=== PATIENT | male | born 1965 | race Caucasian/White ===

== ENCOUNTER → 2016-07-09 | Outpatient (CLI) | payer OTHER ==
[2016-07-09 11:04] LABS: CHLORIDE,CL 101 mmol/L (98-110); SODIUM,NA 137 mmol/L (136-146)
== END ==
LOC: MW.CHFP 10:15
PROVIDERS: ATTEND Family Medicine
DX: I10 Essential (primary) hypertension (principal); E11.69 Type 2 diabetes mellitus with other specified complication; E78.5 Hyperlipidemia, unspecified
CPT/HCPCS: 36415; 80053; 80061; 83036; 84443; 85027

== ENCOUNTER 2016-12-06 22:16 | Observation (INO) | payer OTHER ==
[2016-12-06] MEDS ORDERED: Aspirin 81 MG Tab.Chew PO ONE (22:21)
[2016-12-06] MEDS ORDERED: Sodium Chloride 0.9% 1,000 ML IV ONE (22:21)
--- NOTE | 2016-12-06 22:23 | EDM.PDOC ---
ED HPI GENERAL MEDICAL PROBLEM - General Stated Complaint: TIGHT CHEST PAIN,NECK,EAR,SHOULDER Time Seen by Provider: 12/06/16 22:22 Source of Information: Reports: Patient - History of Present Illness INITIAL COMMENTS - FREE TEXT/NARRATIVE: HISTORY AND PHYSICAL: History of present illness: []Patient has chest pain he rates 4 out of 10 been off-and-on for the last month worsen this evening he had an episode sustained for an hour of chest tightness this was relieved with 2 nitroglycerin here in the emergency room he had taken 325 mg of aspirin at home approximately an hour prior to arrival currently no fever nausea vomiting chills sweats pain is 0 out of 10 originally there was some radiation to the neck possibly he states his ears felt full not associated with shortness of breath or diaphoresis No fever nausea vomiting chills sweats Review of systems: As per history of present illness and below otherwise all systems reviewed and negative. Past medical history: As per history of present illness and as reviewed below otherwise noncontributory. Surgical history: As per history of present illness and as reviewed below otherwise noncontributory. Social history: No reported history of drug or alcohol abuse. Family history: As per history of present illness and as reviewed below otherwise noncontributory. Physical exam: HEENT: Atraumatic, normocephalic, pupils reactive, negative for conjunctival pallor or scleral icterus, mucous membranes moist, throat clear, neck supple, nontender, trachea midline. Lungs: Clear to auscultation, breath sounds equal bilaterally, chest nontender. Heart: S1S2, regular, negative for clicks, rubs, or JVD. Abdomen: Soft, nondistended, nontender. Negative for masses or hepatosplenomegaly. Negative for costovertebral tenderness. Pelvis: Stable nontender. Genitourinary: Deferred. Rectal: Deferred. Extremities: Atraumatic, negative for cords or calf pain. Neurovascular unremarkable. Neuro: Awake, alert, oriented. Cranial nerves II through XII unremarkable. Cerebellum unremarkable. Motor and sensory unremarkable throughout. Exam nonfocal. Diagnostics: []Lab as below EKG Chest 1 view Therapeutics: []Saline bolus Aspirin 324 mg chewable Nitroglycerin 0.4 mg sublingual 2 Lopressor 5 mg IV Lovenox 117 mg subcutaneous Impression: Acute coronary syndrome Definitive disposition and diagnosis as appropriate pending reevaluation and review of above. chest pain Pain Score (Numeric/FACES): 7 - Related Data Allergies Allergy/AdvReac Type Severity Reaction Status Date / Time No Known Allergies Allergy Verified 12/06/16 22:26 Home Meds: Home Meds Canagliflozin [Invokana] 300 mg PO DAILY 12/06/16 [History] Esomeprazole [NexIUM] 40 mg PO DAILY 12/06/16 [History] Lisinopril 1 tab PO DAILY 12/06/16 [History] atorvaSTATin [Lipitor] 10 mg PO DAILY 12/06/16 [History] metFORMIN [Glucophage] 1,000 mg PO BIDMEALS 12/06/16 [History] Social & Family History - Tobacco Use Smoking Status *Q: Current Every Day Smoker Years of Tobacco use: 34 - Alcohol Use Days Per Week of Alcohol Use: 0 - Recreational Drug Use Recreational Drug Use: No ED ROS GENERAL - Review of Systems Review Of Systems: ROS reveals no pertinent complaints other than HPI. ED EXAM, GENERAL - Physical Exam Exam: See Below Course - Vital Signs Last Recorded V/S: Last Vital Signs Temp 36.6 C 12/07/16 04:36 Pulse 84 12/07/16 04:36 Resp 16 12/07/16 04:36 BP 106/61 12/07/16 04:36 Pulse Ox 95 12/07/16 04:36 - Orders/Labs/Meds Labs: Laboratory Tests 12/06/16 12/06/16 12/06/16 Range/Units 22:23 22:23 22:23 WBC 19.20 H (4.0-11.0) K/uL RBC 4.62 (4.50-5.90) M/uL Hgb 15.7 (13.0-17.0) g/dL Hct 44.7 (38.0-50.0) % MCV 96.8 (80.0-98.0) fL MCH 34.0 H (27.0-32.0) pg MCHC 35.1 (31.0-37.0) g/dL RDW Std Deviation 48.6 (28.0-62.0) fl RDW Coeff of Sharon 14 (11.0-15.0) % Plt Count 297 (150-400) K/uL MPV 9.00 (7.40-12.00) fL Neut % (Auto) 66.6 (48.0-80.0) % Lymph % (Auto) 23.3 (16.0-40.0) % [place] % (Auto) 7.8 (0.0-15.0) % Eos % (Auto) 1.9 (0.0-7.0) % Baso % (Auto) 0.4 (0.0-1.5) % Neut # (Auto) 12.8 H (1.4-5.7) K/uL Lymph # (Auto) 4.5 H (0.6-2.4) K/uL [place] # (Auto) 1.5 H (0.0-0.8) K/uL Eos # (Auto) 0.4 (0.0-0.7) K/uL Baso # (Auto) 0.1 (0.0-0.1) K/uL Nucleated RBC % 0.0 /100WBC Nucleated RBCs # 0 K/uL Sodium 137 (136-146) mmol/L Potassium 4.4 (3.5-5.1) mmol/L Chloride 100 (98-110) mmol/L Carbon Dioxide 25 (21-31) mmol/L BUN 16 (6.0-23.0) mg/dL Creatinine 1.4 (0.6-1.5) mg/dL Est Cr Clr Drug Dosing 71.34 mL/min Estimated GFR (MDRD) 53.6 ml/min Glucose 146 H (60-110) mg/dL Calcium 10.5 (8.8-10.8) mg/dL Total Bilirubin 0.4 (0.1-1.5) mg/dL AST 15 (5-40) IU/L ALT 18 (8-54) IU/L Alkaline Phosphatase 101 (40-150) Creatine Kinase 105 (9-236) IU/L CK-MB (CK-2) 1.4 (0-6.6) ng/ml Troponin I < 0.10 (0.0-0.29) NG/ML Total Protein 8.3 H (6.0-8.0) g/dL Albumin 4.6 (3.5-5.0) g/dL Globulin 3.7 H (2.0-3.5) g/dL Albumin/Globulin Ratio 1.2 L (1.3-2.8) Amylase 61 (10-90) U/L Lipase 24 (7-80) U/L Urine Color Urine Appearance Urine pH (5.0-8.0) Ur Specific [place] (1.001-1.035) Urine Protein (NEGATIVE) mg/dL Urine Glucose (UA) (NEGATIVE) mg/dL Urine Ketones (NEGATIVE) mg/dL Urine Occult Blood (NEGATIVE) Urine Nitrite (NEGATIVE) Urine Bilirubin (NEGATIVE) Urine Urobilinogen (<2.0) EU/dL Ur Leukocyte Esterase (NEGATIVE) Urine RBC (0-2/HPF) Urine WBC (0-5/HPF) Ur Epithelial Cells (NONE-FEW) Urine Bacteria (NEGATIVE) 12/06/16 Range/Units 22:53 WBC (4.0-11.0) K/uL RBC (4.50-5.90) M/uL Hgb (13.0-17.0) g/dL Hct (38.0-50.0) % MCV (80.0-98.0) fL MCH (27.0-32.0) pg MCHC (31.0-37.0) g/dL RDW Std Deviation (28.0-62.0) fl RDW Coeff of Sharon (11.0-15.0) % Plt Count (150-400) K/uL MPV (7.40-12.00) fL Neut % (Auto) (48.0-80.0) % Lymph % (Auto) (16.0-40.0) % [place] % (Auto) (0.0-15.0) % Eos % (Auto) (0.0-7.0) % Baso % (Auto) (0.0-1.5) % Neut # (Auto) (1.4-5.7) K/uL Lymph # (Auto) (0.6-2.4) K/uL [place] # (Auto) (0.0-0.8) K/uL Eos # (Auto) (0.0-0.7) K/uL Baso # (Auto) (0.0-0.1) K/uL Nucleated RBC % /100WBC Nucleated RBCs # K/uL Sodium (136-146) mmol/L Potassium (3.5-5.1) mmol/L Chloride (98-110) mmol/L Carbon Dioxide (21-31) mmol/L BUN (6.0-23.0) mg/dL Creatinine (0.6-1.5) mg/dL Est Cr Clr Drug Dosing mL/min Estimated GFR (MDRD) ml/min Glucose (60-110) mg/dL Calcium (8.8-10.8) mg/dL Total Bilirubin (0.1-1.5) mg/dL AST (5-40) IU/L ALT (8-54) IU/L Alkaline Phosphatase (40-150) Creatine Kinase (9-236) IU/L CK-MB (CK-2) (0-6.6) ng/ml Troponin I (0.0-0.29) NG/ML Total Protein (6.0-8.0) g/dL Albumin (3.5-5.0) g/dL Globulin (2.0-3.5) g/dL Albumin/Globulin Ratio (1.3-2.8) Amylase (10-90) U/L Lipase (7-80) U/L Urine Color YELLOW Urine Appearance CLEAR Urine pH 5.5 (5.0-8.0) Ur Specific [place] 1.010 (1.001-1.035) Urine Protein NEGATIVE (NEGATIVE) mg/dL Urine Glucose (UA) >=1000 (NEGATIVE) mg/dL Urine Ketones NEGATIVE (NEGATIVE) mg/dL Urine Occult Blood TRACE-INTACT (NEGATIVE) Urine Nitrite NEGATIVE (NEGATIVE) Urine Bilirubin NEGATIVE (NEGATIVE) Urine Urobilinogen 0.2 (<2.0) EU/dL Ur Leukocyte Esterase NEGATIVE (NEGATIVE) Urine RBC 0-3 (0-2/HPF) Urine WBC 0-2 (0-5/HPF) Ur Epithelial Cells RARE (NONE-FEW) Urine Bacteria RARE (NEGATIVE) Meds: Medications Discontinued Medications Generic Name Dose Route Start Last Admin Trade Name Freq PRN Reason Stop Dose Admin Aspirin 324 mg 12/06/16 22:21 12/06/16 22:35 Aspirin PO 12/06/16 22:22 Not Given ONETIME ONE Benzocaine/Menthol 1 lozenge 12/07/16 00:24 Cepacol Sore Throat MUCMEM Q2H PRN Sore Throat Enoxaparin Sodium 117 mg 12/06/16 23:14 12/06/16 23:30 Lovenox SUBCUT 12/06/16 23:15 117 mg ONETIME ONE Administration Sodium Chloride 1,000 mls @ 999 mls/hr 12/06/16 22:21 12/06/16 22:34 Normal Saline IV 12/06/16 23:21 999 mls/hr STAT ONE Administration Insulin Aspart 0 unit 12/07/16 00:30 12/07/16 01:44 Novolog SUBCUT Not Given TIDAC [facility] Protocol Metoprolol Tartrate 5 mg 12/06/16 22:30 12/06/16 23:30 Lopressor IVPUSH 12/06/16 22:31 5 mg ONETIME ONE Administration Nitroglycerin 0.4 mg 12/06/16 22:29 12/06/16 22:50 Nitrostat SL 0.4 mg Q5M PRN Administration Chest Pain Nitroglycerin Confirm 12/06/16 22:39 12/06/16 22:43 Nitrostat Administered 12/06/16 22:40 Not Given Dose 1.2 mg .ROUTE .STK-MED ONE Departure - Departure Time of Disposition: 19:08 Disposition: Admitted As Inpatient 67 Condition: Good Clinical Impression: Acute coronary syndrome - Discharge Information
[2016-12-06] MEDS ORDERED: Metoprolol Tartrate 5 MG/5 ML SDV IVPUSH ONE (22:30)
[2016-12-06] MEDS ORDERED: Nitroglycerin 0.4 MG Tab.SL ONE (22:39)
[2016-12-06] MEDS: Nitroglycerin 0.4 MG Tab.SL SL PRN ×2 (22:43→22:50)
[2016-12-06] MEDS ORDERED: Enoxaparin 150 MG/1 ML Syringe SUBCUT ONE (23:14)
[2016-12-07] MEDS ORDERED: Benzocaine/Cetylpyridinium/Menthol Lozenge MUCMEM PRN (00:24)
[2016-12-07] MEDS ORDERED: Insulin Aspart 100 Units/ML 3 ML Pen SUBCUT SCH (00:30)
[2016-12-07 05:43] VITALS: BP 106/61
--- NOTE | 2016-12-07 05:45 | PCM.HP ---
H&P History of Present Illness - History of Present Illness Initial Comments - Free Text/Narative: 51 yo male smoker with pmh of HTN and DM who presents with history of one hour of chest pain. He describes the pain as substernal chest pressure that radiates to the neck with associated symptoms of shortness of breath. He had been having chest pain that had been less severe for past month and was scheduled for stress testing this Friday. He took an aspirin at home and came to the ED. IN the ED he had ECG which showed t-wave inversion. Initial troponin was negative. He received SL nitro x2 with resolution of chest pain. He received Aspirin 325mg and lovenox 117mg in the ED. His second troponin is elevated at 0.62 but has remained chest pain free. chest pain Pain Score (Numeric/FACES): 0 - Related Data Allergies/Adverse Reactions: Allergies Allergy/AdvReac Type Severity Reaction Status Date / Time No Known Allergies Allergy Verified 12/06/16 22:26 Home Medications: Home Meds Canagliflozin [Invokana] 300 mg PO DAILY 12/06/16 [History] Esomeprazole [NexIUM] 40 mg PO DAILY 12/06/16 [History] Lisinopril 1 tab PO DAILY 12/06/16 [History] atorvaSTATin [Lipitor] 10 mg PO DAILY 12/06/16 [History] metFORMIN [Glucophage] 1,000 mg PO BIDMEALS 12/06/16 [History] Past Medical History HEENT History: Reports: Cataract Other HEENT History: cataracts done this month, left eye two days prior to this admission Cardiovascular History: Reports: High Cholesterol, Hypertension Respiratory History: Reports: None Gastrointestinal History: Reports: None Genitourinary History: Reports: Other (See Below) Other Genitourinary History: Testicular Ca Musculoskeletal History: Reports: None Neurological History: Reports: None Psychiatric History: Reports: None Endocrine/Metabolic History: Reports: Diabetes, Type II Hematologic History: Reports: None Immunologic History: Reports: None Oncologic (Cancer) History: Reports: Other (See Below) Other Oncologic History: Testicular Ca Dermatologic History: Reports: None - Infectious Disease History Infectious Disease History: Reports: Chicken Pox, Measles, Mumps - Past Surgical History HEENT Surgical History: Reports: Cataract Surgery Respiratory Surgical History: Reports: Other (See Below) Other Respiratory Surgeries/Procedures: left lobectomy Male Surgical History: Reports: Other (See Below) Other Male Surgeries/Procedures: left testicular surgery Social & Family History - Family History Family Medical History: Noncontributory - Tobacco Use Smoking Status *Q: Heavy Tobacco Smoker Years of Tobacco use: 37 Packs/Tins Daily: 2 Second Hand Smoke Exposure: Yes - Caffeine Use Caffeine Use: Reports: Soda, Other Other Caffeine Use: DT MT DEW - Alcohol Use Days Per Week of Alcohol Use: 0 - Recreational Drug Use Recreational Drug Use: Yes Drug Use in Last 12 Months: Yes Recreational Drug Type: Reports: Dextromethorphan (Cough Syrup) Other Recreational Drug Type: uses two swigs every night to go to sleep H&P Review of Systems - Review of Systems: Review Of Systems: ROS reveals no pertinent complaints other than HPI. Exam - Exam Exam: See Below - Vital Signs Vital Signs: Last Vital Signs Temp 36.6 C 12/07/16 04:36 Pulse 84 12/07/16 04:36 Resp 16 12/07/16 04:36 BP 106/61 12/07/16 04:36 Pulse Ox 95 12/07/16 04:36 Weight: 117.5 kg - Exam General: Alert, Oriented HEENT: Mucosa Moist & [place], Posterior Pharynx Clear Lungs: Clear to Auscultation, Normal Respiratory Effort Cardiovascular: Regular Rate, Regular Rhythm GI/Abdominal Exam: Normal Bowel Sounds, Soft, Non-Tender, No Distention, Pelvis Stable Extremities: Normal Inspection, Non-Tender, No Pedal Edema Skin: Warm, Dry, Intact Neurological: No: Focal Deficit - Patient Data Lab Results Last 24 hrs: Laboratory Results - last 24 hr 12/07/16 12/07/16 12/07/16 Range/Units 04:12 04:12 04:12 WBC 13.73 H (4.0-11.0) K/uL RBC 4.11 L (4.50-5.90) M/uL Hgb 13.6 (13.0-17.0) g/dL Hct 40.4 (38.0-50.0) % MCV 98.3 H (80.0-98.0) fL MCH 33.1 H (27.0-32.0) pg MCHC 33.7 (31.0-37.0) g/dL RDW Std Deviation 49.8 (28.0-62.0) fl RDW Coeff of Sharon 14 (11.0-15.0) % Plt Count 261 (150-400) K/uL MPV 9.00 (7.40-12.00) fL Neut % (Auto) 57.8 (48.0-80.0) % Lymph % (Auto) 31.5 (16.0-40.0) % [place] % (Auto) 7.3 (0.0-15.0) % Eos % (Auto) 2.7 (0.0-7.0) % Baso % (Auto) 0.7 (0.0-1.5) % Neut # (Auto) 8.0 H (1.4-5.7) K/uL Lymph # (Auto) 4.3 H (0.6-2.4) K/uL [place] # (Auto) 1.0 H (0.0-0.8) K/uL Eos # (Auto) 0.4 (0.0-0.7) K/uL Baso # (Auto) 0.1 (0.0-0.1) K/uL Nucleated RBC % 0.0 /100WBC Nucleated RBCs # 0 K/uL Sodium 138 (136-146) mmol/L Potassium 4.7 (3.5-5.1) mmol/L Chloride 105 (98-110) mmol/L Carbon Dioxide 23 (21-31) mmol/L BUN 22 (6.0-23.0) mg/dL Creatinine 1.3 (0.6-1.5) mg/dL Est Cr Clr Drug Dosing 76.83 mL/min Estimated GFR (MDRD) 58.4 ml/min Glucose 138 H (60-110) mg/dL Calcium 10.3 (8.8-10.8) mg/dL Troponin I 0.62 H* (0.0-0.29) NG/ML Result Diagrams: 12/07/16 04:12 12/07/16 04:12 *Q Meaningful Use (ADM) - VTE *Q VTE Criteria *Q: - Stroke *Q Stroke Criteria *Q: - AMI *Q AMI Criteria *Q: Problem List Initiated/Reviewed/Updated: Yes Orders Last 24hrs: Active Orders 24 hr Category Date Time Status Blood Glucose Check, Bedside [RC] TIDA Care 12/08/16 07:30 Active EKG 12 Lead [EKG Documentation Completion] [RC] STAT Care 12/07/16 04:36 Active Telemetry Monitoring [Cardiac Monitoring] [RC] . Care 12/06/16 23:43 Active DIRECTED [employer] Diet [DIET] Diet 12/07/16 Breakfast Active TROPONIN I [CHEM] Q6H Lab 12/07/16 10:23 Ordered Benzocaine/Cetylpyrd/Menthol [Cepacol Sore Throat] Med 12/07/16 00:24 Active 1 lozenge MUCMEM Q2H PRN Insulin Aspart [NovoLOG] Med 12/07/16 00:30 Active See Protocol SUBCUT TIDAC Medication Orders Benzocaine/Menthol (Cepacol Sore Throat) 1 lozenge MUCMEM Q2H PRN PRN Reason: Sore Throat Insulin Aspart (Novolog) 0 unit SUBCUT TIDAC DAVIDSON PRN Reason: Protocol Last Admin: 12/07/16 01:44 Dose: Not Given Nitroglycerin (Nitrostat) 0.4 mg SL Q5M PRN PRN Reason: Chest Pain Last Admin: 12/06/16 22:50 Dose: 0.4 mg Admin: 12/06/16 22:43 Dose: 0.4 mg Assessment/Plan Comment:: 51 yo male with likely NSTEMI. Patient has received ASA and lovenox. He is chest pain free. [facility] is full. I have called [facility] and Dr. De La Garza has accepted the patient for transfer
--- NOTE | 2016-12-09 13:28 | CR ---
EXAM DATE: 12/06/16 PATIENT'S AGE: 51 Patient: DEISI PEREZ Facility: [place], [place] Site . Site : 1965 Study: XRay Chest [id number]/29/2017 10:39:13 PM Ordering Physician: Carroll Smith Final Report: INDICATION: CHEST PAIN TECHNIQUE: Chest 1 view. COMPARISON: 11/18/16 FINDINGS: Cardiovascular and mediastinum: Heart size and vasculature are normal in caliber and appearance. Mediastinum is within normal limits. Lungs and pleural space: Lungs are clear. No sign of infiltrate or mass. No sign of pleural effusion. No pneumothorax. Bones and soft tissues: No significant findings. IMPRESSION: Unremarkable chest. Dictated by: Victor Manuel Bagley MD @ 12/06/2016 23:26:50 (Electronic Signature) Report Signed by Proxy. [facility]
== END 2016-12-07 07:00 ==
LOC: MW.ED 22:16 → MW.MS 23:32 → UNDODISOB 12-07 07:00
PROVIDERS: ADMIT Internal Medicine; ATTEND Internal Medicine
DX: R07.2 Precordial pain (principal); I10 Essential (primary) hypertension; E78.00 Pure hypercholesterolemia, unspecified; E11.9 Type 2 diabetes mellitus without complications; F17.210 Nicotine dependence, cigarettes, uncomplicated; Z85.47 Personal history of malignant neoplasm of testis; Z79.84 Long term (current) use of oral hypoglycemic drugs; Z79.899 Other long term (current) drug therapy; Z98.49 Cataract extraction status, unspecified eye; Z90.2 Acquired absence of lung [part of]; Z98.890 Other specified postprocedural states
CPT/HCPCS: 36415; 71010; 80048; 80053; 81001; 82150; 82550; 82553; 83690; 84484; 85025; 93005; 96361; 96374; 99285; A9270; G0378; J1650; J7040; 99283

== ENCOUNTER 2017-07-28 22:17 | Emergency (ER) | payer OTHER ==
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
[2017-07-28 23:47] VITALS: BP 128/76
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
== END 2017-07-28 23:45 | disposition home or self-care (01) ==
LOC: MW.ED 22:17
DX: S60.211A Contusion of right wrist, initial encounter (principal); S89.92XA Unspecified injury of left lower leg, initial encounter; I10 Essential (primary) hypertension; E11.9 Type 2 diabetes mellitus without complications; E78.00 Pure hypercholesterolemia, unspecified; Z79.82 Long term (current) use of aspirin; Z79.899 Other long term (current) drug therapy; V89.2XXA Person injured in unspecified motor-vehicle accident, traffic, initial encounter
CPT/HCPCS: 73110-26-RT; 73110-RT; 73590-26-LT; 73590-LT; 99284

== ENCOUNTER 2019-11-03 06:41 | Day surgery (SDC) | payer BC, OTHER ==
[~2019-11-03 06:41] MED LIST: Lactated Ringers 1,000 ML IV SCH
[2019-11-03] MEDS ORDERED: Lidocaine 2% 5 ML SDV ONE (07:08)
[2019-11-03] MEDS ORDERED: fentaNYL 100 MCG/2 ML SDV ONE (07:09)
[2019-11-03] MEDS ORDERED: Propofol 200 MG/20 ML SDV ONE (07:09)
--- NOTE | 2019-11-03 07:43 | PCM.PREANE ---
Preanesthetic Assessment - Anesthesia/Transfusion/Family Hx Anesthesia History: Prior Anesthesia Without Reaction Family History of Anesthesia Reaction: No Transfusion History: No Prior Transfusion(s) - Review of Systems General: No Symptoms Pulmonary: No Symptoms Cardiovascular: No Symptoms Gastrointestinal: No Symptoms Neurological: No Symptoms Other: Reports: None - Physical Assessment NPO Status Date: 11/02/19 Vital Signs: Last Vital Signs Temp 97.7 F 11/03/19 06:55 Pulse 90 11/03/19 06:55 Resp 15 11/03/19 06:55 BP 132/70 11/03/19 06:55 Pulse Ox 93 L 11/03/19 06:55 Height: 6 ft 1 in Weight: 119.295 kg ASA Class: 3 Mental Status: Alert & Oriented x3 Airway Class: Mallampati = 2 Dentition: Reports: Normal Dentition ROM/Head Extension: Full Lungs: Clear to Auscultation, Normal Respiratory Effort Cardiovascular: Regular Rate, Regular Rhythm - Lab Values: Laboratory Last Values POC Glucose 125 mg/dL (60-110) H 11/03/19 07:11 - Allergies Allergies/Adverse Reactions: Allergies Allergy/AdvReac Type Severity Reaction Status Date / Time No Known Allergies Allergy Verified 10/29/19 11:18 - Blood Blood Available: No - Anesthesia Plan Pre-Op Medication Ordered: None - Acknowledgements Anesthesia Type Planned: Spinal Pt an Appropriate Candidate for the Planned Anesthesia: Yes Alternatives and Risks of Anesthesia Discussed w Pt/Guardian: Yes Pt/Guardian Understands and Agrees with Anesthesia Plan: Yes Additional Comments: PMH: cad s/p CABG, no current sx, hx cardiomyopathy 2017-ewsolved, LLL for coccidiomycosis, DM@-am [id number]=[id number], htn, CKD, GERD, PLAN: TIVA PreAnesthesia Questionnaire HEENT History: Reports: Cataract, Other (See Below) Other HEENT History: wears glasses Cardiovascular History: Reports: CAD, High Cholesterol, Hypertension, SC Respiratory History: Reports: None Gastrointestinal History: Reports: Colon Polyp, GERD Genitourinary History: Reports: Other (See Below) Other Genitourinary History: hx of testicular cancer Musculoskeletal History: Reports: Fracture Other Musculoskeletal History: hx of fx skull, both arms and legs, fingers Neurological History: Reports: Concussion, Head Trauma, Other (See Below) Other Neuro History: hx of fx skull Psychiatric History: Reports: Anxiety Endocrine/Metabolic History: Reports: Diabetes, Type II, Obesity/BMI 30+ Hematologic History: Reports: None Immunologic History: Reports: None Oncologic (Cancer) History: Reports: Other (See Below) Other Oncologic History: Testicle Dermatologic History: Reports: Other (See Below) Other Dermatologic History: Psoriasis as a child- not now - Infectious Disease History Infectious Disease History: Reports: Measles, Mumps, Other (See Below) Other Infectious Disease History: Strep A - Past Surgical History Head Surgeries/Procedures: Reports: None HEENT Surgical History: Reports: Cataract Surgery Cardiovascular Surgical History: Reports: Coronary Artery Bypass Other Cardiovascular Surgeries/Procedures: CABG with 3 vessels, 3 years ago- denies chest pain and SOB since Respiratory Surgical History: Reports: Other (See Below) Other Respiratory Surgeries/Procedures: hx of Left Lower Lobectomy GI Surgical History: Reports: Colonoscopy Other Female Surgeries/Procedures: left Orchiectomy Male Surgical History: Reports: Other (See Below) Musculoskeletal Surgical History: Reports: Arthroscopic Knee Other Oncologic Surgeries/Procedures: left Orchiectomy - SUBSTANCE USE Smoking Status *Q: Former Smoker Tobacco Use Within Last Twelve Months: Snuff/Dip Recreational Drug Use History: No - HOME MEDS Home Medications: Home Meds Canagliflozin [Invokana] 300 mg PO DAILY 12/06/16 [History] Esomeprazole [NexIUM] 40 mg PO DAILY 12/06/16 [History] Lisinopril 10 mg PO QAM 12/06/16 [History] atorvaSTATin [Lipitor] 80 mg PO BEDTIME 12/06/16 [History] metFORMIN [Glucophage] 500 mg PO BIDMEALS 12/06/16 [History] Amitriptyline [Elavil] 10 mg PO BEDTIME 07/28/17 [History] Aspirin 81 mg PO DAILY 07/28/17 [History] Metoprolol Tartrate 25 mg PO BID 07/28/17 [History] Sertraline [Zoloft] 50 mg PO DAILY 07/28/17 [History] Nitroglycerin 0.4 mg PO ASDIRECTED PRN MDD 3 tabs 10/29/19 [History] Pioglitazone HCl 15 mg PO DAILY 10/29/19 [History] tadalafiL [Tadalafil] 2.5 mg PO DAILY 10/29/19 [History] - CURRENT (IN HOUSE) MEDS Current Meds: Current Medications Lactated Ringer's (Ringers, Lactated) 1,000 mls @ 125 mls/hr IV ASDIRECTED DAVIDSON Discontinued Medications Fentanyl (Sublimaze) Confirm Administered Dose 100 mcg .ROUTE .STK-MED ONE Stop: 11/03/19 07:10 Lidocaine (Xylocaine-Mpf 2%) Confirm Administered Dose 5 ml .ROUTE .STK-MED ONE Stop: 11/03/19 07:09 Propofol (Diprivan 20 Ml) Confirm Administered Dose 400 mg .ROUTE .STK-MED ONE Stop: 11/03/19 07:10
[2019-11-03] MEDS ORDERED: Glycopyrrolate 0.2 MG/ML SDV ONE (07:58)
[2019-11-03] MEDS ORDERED: ePHEDrine 50 MG/ML SDV ONE (08:16)
--- NOTE | 2019-11-03 08:30 | PCM.OPNOTE ---
- General Post-Op/Procedure Note Date of Surgery/Procedure: 11/03/19 Operative Procedure(s): colonoscopy Findings: see [id number] Pre Op Diagnosis: polyp hx Post-Op Diagnosis: diverticulosis Complications: None Condition: Good
--- NOTE | 2019-11-03 09:12 | PCM.POSTAN ---
POST ANESTHESIA ASSESSMENT - MENTAL STATUS Mental Status: Alert, Oriented - VITAL SIGNS Vital Signs: Last Vital Signs Temp 97.2 F 11/03/19 08:19 Pulse 82 11/03/19 08:34 Resp 13 11/03/19 08:34 BP 129/65 11/03/19 08:34 Pulse Ox 97 11/03/19 08:34 - RESPIRATORY Respiratory Status: Respiratory Rate WNL, Airway Patent, O2 Saturation Stable - CARDIOVASCULAR CV Status: Pulse Rate WNL, Blood Pressure Stable - GASTROINTESTINAL GI Status: No Symptoms - POST OP HYDRATION Hydration Status: Adequate & Stable
--- NOTE | 2019-11-03 09:13 | PCM48HPAN ---
Post Anesthesia Note - EVALUATION WITHIN 48HRS OF ANESTHETIC Vital Signs in Normal Range: Yes Patient Participated in Evaluation: Yes Respiratory Function Stable: Yes Airway Patent: Yes Cardiovascular Function Stable: Yes Hydration Status Stable: Yes Pain Control Satisfactory: Yes Nausea and Vomiting Control Satisfactory: Yes Mental Status Recovered: Yes Vital Signs: Last Vital Signs Temp 97.2 F 11/03/19 08:19 Pulse 82 11/03/19 08:34 Resp 13 11/03/19 08:34 BP 129/65 11/03/19 08:34 Pulse Ox 97 11/03/19 08:34
[2019-11-03 09:18] VITALS: BP 157/81; PULSE 78
--- NOTE | 2019-11-03 15:32 | OR ---
SURGEON: Wally Carvalho MD DATE OF PROCEDURE: 11/03/2019 PROCEDURE PERFORMED: Colonoscopy. DESCRIPTION OF PROCEDURE: The patient was taken to the endoscopy room. A time out was called, patient identified, and procedure identified. Diprivan was then administrated. Patient went from awake to sleep, hearing doctor talking or door closing is normal. Perineum inspection and digital examination were then performed. A well- lubricated colonoscope was gently inserted through the rectum, advanced past the rectosigmoid junction, the descending colon, splenic flexure, transverse colon, hepatic flexure, ascending colon, arrived to the cecum. Cecum was identified as dictated in the finding. Then the scope was carefully withdrawn while attention was paid to the mucosal surface for any abnormality. Air will be sucked out during the scope withdrawal. At the rectum, retroflexed to examine any rectal diseases, fistula or hemorrhoids. Patient tolerated procedure well. There were no intraoperative complications, and Dr. aCrvalho was present throughout the whole procedure. FINDINGS: 1. The patient easily sedated with FISHING G[employer] WARDEN and Diprivan. The patient is soundly snoring. 2. Bowel prep is left to be desirable. A lot of semi-formed stool coating the mucosa, so the study is quite compromised, and also we see couple of solid stool and several stool balls, so the study is quite compromised and required constant irrigation. 3. Colon is rather straightforward. Cecum indicated by ileocecal fold, one-to- one indentation, and appendiceal orifice is observed. Mucosa was examined upon scope pulling out, and at the cecum, we also see the scope guide pointing south. The patient has some moderate diverticulosis on the left colon. Some of the false lumen is as big as the true lumen and no signs or symptoms of diverticulitis. Again, there is quite a lot of semi-formed stool requiring a tremendous amount of irrigation. No polyp but again is a compromised study. No inflammation, stricture, ulceration, AV malformation, or bleeding; none of those present. Some mild internal hemorrhoid, many anal tags, and some external hemorrhoids. The patient would benefit from repeat colonoscopy in 1 to 2 years from now, probably about 2 years because of bowel prep. TRICIA / ROSELINE /[id number]
== END 2019-11-03 08:55 | disposition home or self-care (01) ==
LOC: MW.SDS 06:41
PROVIDERS: ATTEND Surgery
DX: Z12.11 Encounter for screening for malignant neoplasm of colon (principal); K57.30 Diverticulosis of large intestine without perforation or abscess without bleeding; K64.8 Other hemorrhoids; K64.4 Residual hemorrhoidal skin tags; F41.9 Anxiety disorder, unspecified; E78.5 Hyperlipidemia, unspecified; K21.9 Gastro-esophageal reflux disease without esophagitis; I12.9 Hypertensive chronic kidney disease with stage 1 through stage 4 chronic kidney disease, or unspecified chronic kidney disease; N18.9 Chronic kidney disease, unspecified; E11.22 Type 2 diabetes mellitus with diabetic chronic kidney disease; E78.00 Pure hypercholesterolemia, unspecified; E11.42 Type 2 diabetes mellitus with diabetic polyneuropathy; E66.9 Obesity, unspecified; Z79.899 Other long term (current) drug therapy; Z86.010 Personal history of colon polyps; Z79.84 Long term (current) use of oral hypoglycemic drugs; Z87.891 Personal history of nicotine dependence; Z68.34 Body mass index [BMI] 34.0-34.9, adult
CPT/HCPCS: 82962; J2001; J2704; J3010; J3490; J7120

== ENCOUNTER 2021-11-11 09:59 | Emergency (ER) | payer SELFPAY ==
[2021-11-11 10:23] VITALS: BP 181/100
[2021-11-11 11:08] VITALS: PULSE 73
== END 2021-11-11 11:07 | disposition home or self-care (01) ==
LOC: MW.ED 09:59
DX: U07.1 COVID-19 (principal); I25.10 Atherosclerotic heart disease of native coronary artery without angina pectoris; I10 Essential (primary) hypertension; I25.2 Old myocardial infarction; E11.9 Type 2 diabetes mellitus without complications; E66.9 Obesity, unspecified; Z68.36 Body mass index [BMI] 36.0-36.9, adult; Z91.14 Patient's other noncompliance with medication regimen; Z79.899 Other long term (current) drug therapy
CPT/HCPCS: 99283; U0002

== ENCOUNTER 2022-12-12 13:39 | Emergency (ER) | payer BC ==
[2022-12-12] MEDS ORDERED: Sodium Chloride 0.9% 10 ML Syringe FLUSH PRN (13:43)
[2022-12-12] MEDS ORDERED: Sodium Chloride 0.9% 2.5 ML Syringe FLUSH PRN (13:43)
[2022-12-12] MEDS ORDERED: Ketorolac 30 MG/ML SDV IVPUSH STA (13:44)
[2022-12-12] MEDS ORDERED: Ondansetron 4 MG/2 ML SDV IVPUSH STA (13:44)
[2022-12-12] MEDS ORDERED: Sodium Chloride 0.9% 1,000 ML IV STA (13:44)
[2022-12-12 14:12] LABS: BASOPHILS ABSOLUTE AUTO 0.09 K/uL (0.00-0.20); BASOPHILS PERCENT AUTO 0.9 % (0.0-1.0); EOSINOPHILS ABSOLUTE AUTO 0.21 K/uL (0.00-0.45); EOSINOPHILS PERCENT AUTO 2.2 % (0.0-6.0); HEMATOCRIT 47.5 % (42.0-52.0); HEMOGLOBIN 16.8 g/dL (14.0-18.0); LYMPHOCYTES ABSOLUTE AUTO 1.37 K/uL (1.00-4.80); LYMPHOCYTES PERCENT AUTO 14.3 % (24.0-44.0); MEAN CORPUSCULAR HEMOGLOBIN 34.6 pg (28.0-32.0); MEAN CORPUSCULAR HGB CONC 35.4 g/dL (32.0-36.0); MEAN CORPUSCULAR VOLUME 97.7 fL (83.0-99.0); MEAN PLATELET VOLUME 8.9 fL (9.4-12.4); MONOCYTES ABSOLUTE AUTO 0.77 K/uL (0.00-0.80); NEUTROPHILS ABSOLUTE AUTO 7.1 K/uL (1.8-7.7); NEUTROPHILS PERCENT AUTO 74.2 % (41.0-71.0); PLATELET COUNT,PLT 248 K/uL (150-400); RED BLOOD CELL COUNT 4.86 M/uL (4.52-5.90)
[2022-12-12 14:32] LABS: A/G RATIO 0.8 (0.9-1.6); ALBUMIN 3.4 g/dL (3.4-5.0); BILIRUBIN TOTAL 0.5 mg/dL (0.2-1.0); CARBON DIOXIDE,CO2 27.9 mmol/L (21.0-32.0); CREATININE 1.1 mg/dL (0.8-1.3); EST CRCL DRUG DOSING (CG) 82.3 mL/min; POTASSIUM,K 4.7 mmol/L (3.5-5.1); PROTEIN TOTAL,TP 7.6 g/dL (6.4-8.2)
[2022-12-12 14:35] LABS: MAGNESIUM 1.6 mg/dL (1.8-2.4)
[2022-12-12] MEDS ORDERED: Iopamidol 755 MG/ML 500 ML Multipack Bottle IVPUSH ONE (15:26)
[2022-12-12] MEDS ORDERED: Magnesium Sulfate/Water 2 GM in Premix Bag 1 BAG IV STA (15:39)
[2022-12-12] MEDS ORDERED: Alum Hydro/Mag Hydro/Simeth XS 15 ML, Lidocaine 2% 5 ML PO STA ×2 (16:00)
[2022-12-12 16:49] VITALS: BP 184/83; PULSE 56
== END 2022-12-12 16:48 | disposition home or self-care (01) ==
LOC: MW.ED 13:39
DX: R10.13 Epigastric pain (principal); R05.9 Cough, unspecified; I25.10 Atherosclerotic heart disease of native coronary artery without angina pectoris; I25.2 Old myocardial infarction; I10 Essential (primary) hypertension; E78.00 Pure hypercholesterolemia, unspecified; K21.9 Gastro-esophageal reflux disease without esophagitis; E11.9 Type 2 diabetes mellitus without complications; E66.9 Obesity, unspecified; Z68.32 Body mass index [BMI] 32.0-32.9, adult; Z86.16 Personal history of COVID-19; Z79.899 Other long term (current) drug therapy; Z79.84 Long term (current) use of oral hypoglycemic drugs
CPT/HCPCS: 36415; 74177; 80053; 83690; 83735; 84484; 85025; 93005; 96361; 96365; 96375; 99284; A9270; J1885; J2405; J3475; J3490; J7030; Q9967; 93010

== ENCOUNTER 2023-04-04 06:49 | Day surgery (SDC) | payer BC ==
[2023-04-04] MEDS ORDERED: Lidocaine 2% 5 ML SDV ONE (07:49)
[2023-04-04] MEDS ORDERED: Propofol 200 MG/20 ML SDV ONE ×3 (07:51→08:27)
[2023-04-04] MEDS ORDERED: Lactated Ringers 1,000 ML IV SCH (09:00)
[2023-04-04 12:44] VITALS: BP 152/67; PULSE 66
== END 2023-04-04 09:20 | disposition home or self-care (01) ==
LOC: MW.SDS 06:49
PROVIDERS: ATTEND Surgery
DX: D12.5 Benign neoplasm of sigmoid colon (principal); K57.30 Diverticulosis of large intestine without perforation or abscess without bleeding; K63.5 Polyp of colon; K21.9 Gastro-esophageal reflux disease without esophagitis; R10.13 Epigastric pain; F41.9 Anxiety disorder, unspecified; I25.10 Atherosclerotic heart disease of native coronary artery without angina pectoris; N18.9 Chronic kidney disease, unspecified; F32.A Depression, unspecified; E11.69 Type 2 diabetes mellitus with other specified complication; E78.5 Hyperlipidemia, unspecified; K29.70 Gastritis, unspecified, without bleeding; N52.9 Male erectile dysfunction, unspecified; I10 Essential (primary) hypertension; I25.5 Ischemic cardiomyopathy; I42.0 Dilated cardiomyopathy; R80.9 Proteinuria, unspecified; R11.2 Nausea with vomiting, unspecified; K31.9 Disease of stomach and duodenum, unspecified; Z87.19 Personal history of other diseases of the digestive system; Z79.899 Other long term (current) drug therapy; Z87.891 Personal history of nicotine dependence
CPT/HCPCS: 43239; 45380; 82947; J2704; J7120; 00813; J3490

== ENCOUNTER 2024-02-14 13:46 | Emergency (ER) | payer BC ==
[2024-02-14] MEDS ORDERED: Sodium Chloride 0.9% 10 ML Syringe FLUSH PRN (14:24)
[2024-02-14] MEDS ORDERED: Sodium Chloride 0.9% 2.5 ML Syringe FLUSH PRN (14:24)
[2024-02-14] MEDS: Sodium Chloride 0.9% 1,000 ML IV STA (14:40)
[2024-02-14 14:44] LABS: BASOPHILS PERCENT AUTO 1.2 % (0.0-1.0); EOSINOPHILS ABSOLUTE AUTO 0.28 K/uL (0.00-0.45); EOSINOPHILS PERCENT AUTO 3.5 % (0.0-6.0); HEMATOCRIT 40.2 % (42.0-52.0); IMMATURE GRAN ABSOLUTE AUTO 0.03 K/uL (0.00-0.05); IMMATURE GRAN PERCENT AUTO 0.4 % (0.0-0.4); LYMPHOCYTES ABSOLUTE AUTO 2.58 K/uL (1.00-4.80); LYMPHOCYTES PERCENT AUTO 32.1 % (24.0-44.0); MEAN CORPUSCULAR HEMOGLOBIN 37.7 pg (28.0-32.0); MEAN CORPUSCULAR HGB CONC 37.3 g/dL (32.0-36.0); MEAN PLATELET VOLUME 9.2 fL (9.4-12.4); MONOCYTES PERCENT AUTO 7.5 % (0.0-8.0); NEUTROPHILS ABSOLUTE AUTO 4.45 K/uL (1.80-7.70); NEUTROPHILS PERCENT AUTO 55.3 % (41.0-71.0); PLATELET COUNT,PLT 249 K/uL (150-400); RED BLOOD CELL COUNT 3.98 M/uL (4.52-5.90); WHITE BLOOD CELL COUNT,WBC 8.04 K/uL (3.9-11.3)
[2024-02-14 14:57] LABS: A/G RATIO 1.1 (0.9-1.6); ALBUMIN 3.7 g/dL (3.4-5.0); BILIRUBIN TOTAL 0.7 mg/dL (0.2-1.0); CALCIUM 8.7 mg/dL (8.5-10.1); CARBON DIOXIDE,CO2 20.6 mmol/L (21.0-32.0); CREATININE 1.8 mg/dL (0.8-1.3); EST CRCL DRUG DOSING (CG) 51.17 mL/min; POTASSIUM,K 4.1 mmol/L (3.5-5.1)
[2024-02-14 15:00] LABS: LACTIC ACID 6.5 mmol/L (0.4-2.0)
[2024-02-14] MEDS: Sodium Chloride 0.9% 500 ML IV ONE (15:51)
[2024-02-14] MEDS: Heparin Sodium/0.45% NaCl 25,000 UNITS/250 ML BAG IV SCH (15:51)
[2024-02-14] MEDS: Heparin Sodium 5,000 Units/ML Vial IVPUSH ONE (15:52)
[2024-02-14 16:11] VITALS: BP 136/68; PULSE 85
[2024-02-14] MEDS: Iopamidol 755 MG/ML 500 ML Multipack Bottle IVPUSH STA (16:14)
== END 2024-02-14 17:16 ==
LOC: MW.ED 13:46
DX: M79.605 Pain in left leg (principal); R20.0 Anesthesia of skin; R20.2 Paresthesia of skin; R74.02 Elevation of levels of lactic acid dehydrogenase [LDH]; H53.8 Other visual disturbances; I25.10 Atherosclerotic heart disease of native coronary artery without angina pectoris; I25.2 Old myocardial infarction; E78.00 Pure hypercholesterolemia, unspecified; K21.9 Gastro-esophageal reflux disease without esophagitis; E11.9 Type 2 diabetes mellitus without complications; E66.9 Obesity, unspecified; F17.210 Nicotine dependence, cigarettes, uncomplicated; Z95.5 Presence of coronary angioplasty implant and graft; Z79.51 Long term (current) use of inhaled steroids; Z79.899 Other long term (current) drug therapy; Z68.29 Body mass index [BMI] 29.0-29.9, adult; Z75.8 Other problems related to medical facilities and other health care
CPT/HCPCS: 36415; 71045; 75635; 80053; 83605; 83880; 84484; 85025; 85730; 93005; 96365; 99285; J1644; J7030; J7040; Q9967

== ENCOUNTER 2024-11-06 15:35 | Emergency (ER) | payer BC ==
[2024-11-06] MEDS: Albuterol 0.083% 2.5 MG/3 ML Neb Soln NEB ONE (16:01)
[2024-11-06 17:35] VITALS: BP 133/68; PULSE 90
[2024-11-06] MEDS: cefTRIAXone 1 GM in Lidocaine 1% 2.1 ML IM ONE (17:35)
== END 2024-11-06 17:35 | disposition home or self-care (01) ==
LOC: MW.ED 15:35
DX: J40 Bronchitis, not specified as acute or chronic (principal); I10 Essential (primary) hypertension; I25.2 Old myocardial infarction; E66.9 Obesity, unspecified; E11.9 Type 2 diabetes mellitus without complications; E78.00 Pure hypercholesterolemia, unspecified; Z79.899 Other long term (current) drug therapy; Z68.30 Body mass index [BMI] 30.0-30.9, adult
CPT/HCPCS: 71046; 87428; 87651; 94640; 99285; J7613; 99284; A9270-GY

== ENCOUNTER 2024-11-07 19:05 | Emergency (ER) | payer BC ==
[2024-11-07] MEDS: Acetaminophen/HYDROcodone 325-10 MG Tab PO ONE (21:12)
[2024-11-07 21:22] VITALS: BP 138/98; PULSE 85
== END 2024-11-07 21:20 | disposition home or self-care (01) ==
LOC: MW.ED 19:05
DX: S93.401A Sprain of unspecified ligament of right ankle, initial encounter (principal); I10 Essential (primary) hypertension; I25.2 Old myocardial infarction; I25.10 Atherosclerotic heart disease of native coronary artery without angina pectoris; E78.00 Pure hypercholesterolemia, unspecified; E11.9 Type 2 diabetes mellitus without complications; E66.9 Obesity, unspecified; K21.9 Gastro-esophageal reflux disease without esophagitis; Z79.899 Other long term (current) drug therapy; Z87.891 Personal history of nicotine dependence; Z68.30 Body mass index [BMI] 30.0-30.9, adult; X50.1XXA Overexertion from prolonged static or awkward postures, initial encounter
CPT/HCPCS: 73600; 73630; 99283; A9270